=== PATIENT | male | born 1980 | race Caucasian/White ===

== ENCOUNTER → 2017-03-14 | Outpatient (CLI) | payer OTHER ==
--- NOTE | 2017-03-14 14:19 | DIAGNOSTIC IMAGING REPORT ---
LEFT KNEE 1 OR 2 VIEWS ROUTINE CLINICAL HISTORY: M25.562 left knee pain COMPARISON: None. DISCUSSION: No acute fractures or dislocations are visualized. There are no erosive or destructive changes. There is no significant joint space narrowing. IMPRESSION: 1. No acute fractures 2. No erosive or destructive changes are visualized. Electronically signed by: Avelino Wen M.D. 03/14/2017 2:18 PM Dictated Date/Time: 03/14/2017 2:17 PM
--- NOTE | 2017-03-14 14:20 | DIAGNOSTIC IMAGING REPORT ---
LEFT ANKLE MIN 3 VIEWS ROUTINE CLINICAL HISTORY: M25.572 Left ankle pain COMPARISON: None. DISCUSSION: No acute fractures or dislocations are visualized. There are minor degenerative changes present. There is a tiny plantar calcaneal spur. There is an area of ossification within the distal interosseous ligament. IMPRESSION: Minor degenerative change. No fractures identified. Electronically signed by: Avelino Wen M.D. 03/14/2017 2:19 PM Dictated Date/Time: 03/14/2017 2:18 PM
--- NOTE | 2017-03-14 14:23 | DIAGNOSTIC IMAGING REPORT ---
LUMBAR SPINE 5 VIEWS CLINICAL HISTORY: Chronic low back pain. FINDINGS: 5 views of the lumbar spine are obtained. No prior studies are available for comparison at the time of dictation. The skeletal structures are well mineralized. There is no radiographic evidence of fracture or malalignment. Vertebral body height and alignment are maintained. The transverse and spinous processes are intact. There is no evidence of spondylolysis. The intervertebral disc spaces are well-maintained. The visualized bony pelvis appears intact. There is a nonobstructed abdominal bowel gas pattern. There is mild to moderate colonic fecal retention. IMPRESSION: Unremarkable radiographic evaluation of the lumbosacral spine. Electronically signed by: Manny Parekh M.D. 03/14/2017 2:22 PM Dictated Date/Time: 03/14/2017 2:21 PM
== END | disposition home or self-care (01) ==
LOC: C.RAD1850 13:50
PROVIDERS: ATTEND Internal Medicine
DX: M25.572 Pain in left ankle and joints of left foot (principal); M25.562 Pain in left knee; M54.5 Low back pain

== ENCOUNTER 2017-08-13 04:28 | Emergency (ER) | payer OTHER ==
[~2017-08-13] VITALS: Ht 188 cm; Wt 117.5 kg
[2017-08-13 04:31] VITALS: TEMP 36.3; Ht 188 cm; Wt 117.5 kg
[2017-08-13] MEDS ORDERED: ONDANSETRON INJ 2 MG/ML 2 ML VIAL IV STA ×2 (04:50→07:04)
[2017-08-13] MEDS ORDERED: SODIUM CHLORIDE 0.9% 1000ML 1,000 ML IV ONE (05:00)
[2017-08-13 05:09] LABS: BASO % 0.1 %; BASO ABS # 0.02 K/uL (0-0.2); EOS % 0.3 %; EOS ABS # 0.04 K/uL (0-0.5); HEMATOCRIT 46.6 % (42-52); HEMOGLOBIN 16.4 g/dL (14.0-18.0); IG# 0.04 K/uL (0.00-0.02); LYMPH % 4.3 %; MEAN CELL VOLUME 83.5 fL (80-100); MEAN CORPUSCULAR HEMOGLOBIN 29.4 pg (25-34); MEAN CORPUSCULAR HGB CONC 35.2 g/dl (32-36); MEAN PLATELET VOLUME 9.3 fL (7.4-10.4); MONO % 5.6 %; MONO ABS # 0.78 K/uL (0.11-0.59); NEUT % 89.4 %; NEUT ABS # 12.38 K/uL (1.4-6.5); PLATELET COUNT 230 K/uL (130-400); RED CELL DISTRIBUTION WIDTH CV 12.8 % (11.5-14.5); RED CELL DISTRIBUTION WIDTH SD 38.2 fL (36.4-46.3); WHITE BLOOD COUNT 13.86 K/uL (4.8-10.8)
[2017-08-13 05:27] LABS: ALBUMIN 4.3 gm/dl (3.4-5.0); CALCIUM 9.3 mg/dl (8.5-10.1); CREATININE 1.24 mg/dl (0.60-1.40); POTASSIUM 3.9 mmol/L (3.5-5.1)
[2017-08-13 05:30] LABS: TOTAL PROTEIN 8.4 gm/dl (6.4-8.2)
[2017-08-13] MEDS ORDERED: OPTIRAY 320 IV PRN (06:00)
[2017-08-13] MEDS ORDERED: MULT-506 PO (06:25)
[2017-08-13] MEDS ORDERED: ESCI10TA17 PO (06:25)
[2017-08-13] MEDS ORDERED: LACT1CAP6 PO (06:25)
--- NOTE | 2017-08-13 06:57 | DIAGNOSTIC IMAGING REPORT ---
ABDOMEN AND PELVIS CT WITH IV CONTRAST CT DOSE: 1114.76 mGy.cm HISTORY: Nausea, vomiting, diarrhea. Air-fluid levels on xrays. TECHNIQUE: Multiaxial CT images of the abdomen and pelvis were performed following the use of intravenous contrast. A dose lowering technique was utilized adhering to the principles of ALARA. COMPARISON STUDY: None. FINDINGS: The lung bases are clear. No pneumoperitoneum. No pneumatosis. No fractures within the visualized osseous structures. The liver, gallbladder, pancreas, spleen, and adrenal glands are unremarkable. The kidneys enhance normally. No hydronephrosis. The bladder is unremarkable. Fluid-filled large and small bowel. No evidence for bowel obstruction. No retroperitoneal lymphadenopathy. Normal appendix. No bowel wall thickening. IMPRESSION: 1. Fluid-filled large and small bowel consistent with a gastroenteritis. 2. No bowel obstruction. 3. Normal appendix. Electronically signed by: Leroy Mackey M.D. 08/13/2017 6:55 AM Dictated Date/Time: 08/13/2017 6:51 AM
[2017-08-13] MEDS ORDERED: ONDANSETRON HOME PACK 4MG OD TAB PO ONE (07:15)
--- NOTE | 2017-08-13 07:17 | DIAGNOSTIC IMAGING REPORT ---
CHEST AND ABDOMEN 2 VIEWS HISTORY: Nausea. Vomiting. Diarrhea. COMPARISON: Chest 09/04/2015. FINDINGS: Elevated right hemidiaphragm. The lungs are clear. The heart is normal in size. No pneumoperitoneum. No pneumatosis. Multiple small fluid level seen throughout the large and small bowel. No renal or ureteral calculi. No dilated loops of bowel to suggest an obstruction. IMPRESSION: 1. Multiple small fluid levels seen throughout the large and small bowel. This likely represents a gastroenteritis. 2. Progressive elevation of the right hemidiaphragm. Electronically signed by: Leroy Mackey M.D. 08/13/2017 7:15 AM Dictated Date/Time: 08/13/2017 7:14 AM
[2017-08-13] MEDS ORDERED: ONDA4TAB10 SL ×2 (07:18→07:54)
[2017-08-13 07:58] VITALS: BP 118/81; PULSE 88; O2SAT 97
--- NOTE | 2017-08-14 07:03 | EMERGENCY ROOM VISIT NOTE ---
History First contact with patient: 04:36 Chief Complaint: DIARRHEA Stated Complaint: DIARRHEA,VOMITING History of Present Illness The patient is a 37 year old male who presents to the Emergency Room with complaints of nausea, vomiting, and diarrhea for the past 6 hours. The patient does not have a history of chronic medical disease. He does not have known exposure to disease. He states that his emesis has primarily been foodborne. His diarrhea is primarily water. He does not have recent travel history or antibiotic use. He rates his discomfort a 4/10. He does not have a history of abdominal surgery. Review of Systems More than 10 systems were reviewed and otherwise negative with the exception of history of present illness. Past Medical/Surgical History No chronic medical disease Family History No pertinent family history Social History Smoking Status: Never Smoker Housing Status: lives with family Current/Historical Medications Scheduled Escitalopram (Lexapro), 15 MG PO DAILY Lactobacillus (Probiotic), 1 CAP PO DAILY Multivitamin (Multivitamin), 1 TAB PO DAILY Ondasetron Odt (Zofran Odt), 4 MG SL Q6H Physical Exam Vital Signs Date Time Temp Pulse Resp B/P (MAP) Pulse Ox O2 Delivery O2 Flow Rate FiO2 08/13/17 07:58 88 18 118/81 97 08/13/17 07:22 90 18 115/83 96 Room Air 08/13/17 06:28 88 18 145/83 96 Room Air 08/13/17 04:31 36.3 78 18 136/90 96 Room Air Physical Exam VITALS: Vitals are noted on the nurse's note and reviewed by myself. Vital signs stable. GENERAL: Well-developed, well-nourished, white male, who is in no acute distress and resting comfortably. Patient is cooperative with the examination. HEAD: Normocephalic atraumatic. EARS: External ear normal. External auditory canals clear, tympanic membranes pearly busch without erythema or effusion bilaterally. EYES: Pupils equal round and reactive to light and accommodation. Conjunctivae without injection, sclerae without icterus. Extraocular movements intact. NOSE: Patent, turbinates without inflammation or discharge. MOUTH: Mucous membranes moist. Tonsils are not enlarged. Pharynx without erythema, blood, or exudate. Uvula midline. Airway patent. NECK: Supple without nuchal rigidity. No lymphadenopathy. No thyromegaly. Cervical spine is nontender. HEART: Regular rate and rhythm without murmurs gallops or rubs. LUNGS: Clear to auscultation bilaterally without wheezes, rales or rhonchi. No retractions or accessory muscle use. ABDOMEN: Positive normal bowel sounds x 4. Soft, nontender, without masses or organomegaly. No guarding or rebound tenderness. Medical Decision & Procedures ER Provider Diagnostic Interpretation: CHEST AND ABDOMEN 2 VIEWS HISTORY: Nausea. Vomiting. Diarrhea. COMPARISON: Chest 09/04/2015. FINDINGS: Elevated right hemidiaphragm. The lungs are clear. The heart is normal in size. No pneumoperitoneum. No pneumatosis. Multiple small fluid level seen throughout the large and small bowel. No renal or ureteral calculi. No dilated loops of bowel to suggest an obstruction. IMPRESSION: 1. Multiple small fluid levels seen throughout the large and small bowel. This likely represents a gastroenteritis. 2. Progressive elevation of the right hemidiaphragm. ABDOMEN AND PELVIS CT WITH IV CONTRAST CT DOSE: 1114.76 mGy.cm HISTORY: Nausea, vomiting, diarrhea. Air-fluid levels on xrays. TECHNIQUE: Multiaxial CT images of the abdomen and pelvis were performed following the use of intravenous contrast. A dose lowering technique was utilized adhering to the principles of ALARA. COMPARISON STUDY: None. FINDINGS: The lung bases are clear. No pneumoperitoneum. No pneumatosis. No fractures within the visualized osseous structures. The liver, gallbladder, pancreas, spleen, and adrenal glands are unremarkable. The kidneys enhance normally. No hydronephrosis. The bladder is unremarkable. Fluid-filled large and small bowel. No evidence for bowel obstruction. No retroperitoneal lymphadenopathy. Normal appendix. No bowel wall thickening. IMPRESSION: 1. Fluid-filled large and small bowel consistent with a gastroenteritis. 2. No bowel obstruction. 3. Normal appendix. Laboratory Results 08/13/17 05:02 Red Blood Count 5.58, Mean Corpuscular Volume 83.5, Mean Corpuscular Hemoglobin 29.4, Mean Corpuscular Hemoglobin Concent 35.2, Mean Platelet Volume 9.3, Neutrophils (%) (Auto) 89.4, Lymphocytes (%) (Auto) 4.3, Monocytes (%) (Auto) 5.6, Eosinophils (%) (Auto) 0.3, Basophils (%) (Auto) 0.1, Neutrophils # (Auto) 12.38, Lymphocytes # (Auto) 0.60, Monocytes # (Auto) 0.78, Eosinophils # (Auto) 0.04, Basophils # (Auto) 0.02 08/13/17 05:02 Test 08/13/17 05:02 White Blood Count 13.86 K/uL (4.8-10.8) Red Blood Count 5.58 M/uL (4.7-6.1) Hemoglobin 16.4 g/dL (14.0-18.0) Hematocrit 46.6 % (42-52) Mean Corpuscular Volume 83.5 fL (80-100) Mean Corpuscular Hemoglobin 29.4 pg (25-34) Mean Corpuscular Hemoglobin Concent 35.2 g/dl (32-36) Platelet Count 230 K/uL (130-400) Mean Platelet Volume 9.3 fL (7.4-10.4) Neutrophils (%) (Auto) 89.4 % Lymphocytes (%) (Auto) 4.3 % Monocytes (%) (Auto) 5.6 % Eosinophils (%) (Auto) 0.3 % Basophils (%) (Auto) 0.1 % Neutrophils # (Auto) 12.38 K/uL (1.4-6.5) Lymphocytes # (Auto) 0.60 K/uL (1.2-3.4) Monocytes # (Auto) 0.78 K/uL (0.11-0.59) Eosinophils # (Auto) 0.04 K/uL (0-0.5) Basophils # (Auto) 0.02 K/uL (0-0.2) RDW Standard Deviation 38.2 fL (36.4-46.3) RDW Coefficient of Variation 12.8 % (11.5-14.5) Immature Granulocyte % (Auto) 0.3 % Immature Granulocyte # (Auto) 0.04 K/uL (0.00-0.02) Anion Gap 6.0 mmol/L (3-11) Est Creatinine Clear Calc Drug Dose 113.3 ml/min Estimated GFR () 86.8 Estimated GFR (Non- 74.9 BUN/Creatinine Ratio 11.4 (10-20) Calcium Level 9.3 mg/dl (8.5-10.1) Total Bilirubin 0.6 mg/dl (0.2-1) Aspartate Amino Transf (AST/SGOT) 18 U/L (15-37) Alanine Aminotransferase (ALT/SGPT) 29 U/L (12-78) Alkaline Phosphatase 90 U/L (45-117) Total Protein 8.4 gm/dl (6.4-8.2) Albumin 4.3 gm/dl (3.4-5.0) Globulin 4.1 gm/dl (2.5-4.0) Albumin/Globulin Ratio 1.0 (0.9-2) Lipase 122 U/L (73-393) Medications Administered Medications (Trade) Dose Ordered Sig/Vi Route Start Time Stop Time Status Last Admin Dose Admin Sodium Chloride 1,000 ml @ 999 mls/hr Q1H1M ONCE IV 08/13/17 05:00 08/13/17 06:00 DC 08/13/17 05:07 999 MLS/HR Ondansetron HCl (Zofran Inj) 4 mg NOW STAT IV 08/13/17 04:50 08/13/17 04:51 DC 08/13/17 05:07 4 MG Ondansetron HCl (ZOFRAN ODT 4MG Home Pack) 1 homepack UD ONCE PO 08/13/17 07:15 08/13/17 07:16 DC 08/13/17 07:50 1 HOMEPACK Ondansetron HCl (Zofran Inj) 4 mg NOW STAT IV 08/13/17 07:04 08/13/17 07:05 DC 08/13/17 07:26 4 MG ED Course Physical exam and history were performed. Nursing notes, EMR, and Medication List were personally reviewed. Patient appears to have nausea, vomiting, and diarrhea for the past several hours. The patient does not appear toxic on examination. IV access was established and labs were obtained. The patient was hydrated and medicated as above. X-ray was performed. The patient's blood work is as above and was reviewed. He does not have a significantly elevated white blood cell count or gross anemia, bandemia, or significant electrolyte imbalance. X-ray shows air fluid levels. The case was discussed with my attending physician, Dr. Hernandez, and overall we feel it is important the patient undergo CT scan as he may have an obstructive process. The CT scan is as above and is consistent with a gastroenteritis. This does correlate with the patient's symptoms. The patient does feel safe for discharge home. He will be given discharge instructions below and asked to follow with his primary care physician this week for further care and management. The chart was completed utilizing [employer] Speech Voice Recognition Software. Grammatical errors, random word insertions, pronoun errors, and incomplete sentences are an occasional consequence of this system due to software limitations, ambient noise, and hardware issues. Any formal questions or concerns about the content, text, or information contained within the body of this dictation should be directly addressed to the provider for clarification. . Medical Decision Differential diagnosis: Etiologies such as gastroenteritis, food borne illness, infections, appendicitis , diverticulitis, inflammatory bowel disease, obstruction, GI bleed, biliary pathology, as well as others were entertained. Impression Primary Impression: Gastroenteritis Departure Information Dispostion Home / Self-Care Condition GOOD Prescriptions Ondasetron Odt (ZOFRAN ODT) 4 Mg Tab 4 MG SL Q6H for Nausea, #12 TAB . Prov: Jaguar Blanco PA-C 08/13/17 Forms HOME CARE DOCUMENTATION FORM, IMPORTANT VISIT INFORMATION Patient Instructions My [facility] Additional Instructions You were seen and evaluated today on an emergency basis only. This is not a substitute for, or an effort to provide, complete comprehensive medical care. It is not possible to recognize and treat all injuries or illnesses in a single emergency department visit. For this reason it is recommended that you followup with your primary care physician in the next 2-3 days if symptoms persist. Zofran 4 mg ODT: Dissolve 1 tablet every 6 hrs as needed for nausea. Drink plenty of fluids and remain well hydrated. You are welcome to return to the emergency department anytime with new, worsening, or concerning symptoms.
== END 2017-08-13 07:59 | disposition home or self-care (01) ==
LOC: C.EDB 04:29 → C.EDA 07:59
DX: K52.9 Noninfective gastroenteritis and colitis, unspecified (principal)